=== PATIENT | female | born 1995 | race Caucasian/White ===

== ENCOUNTER → 2018-11-10 | Outpatient (CLI) | payer SELFPAY ==
[2018-11-10 17:56] LABS: Chlamydia Trachomatis by PCR Negative (Negative); Neisserai gonorrhoeae by PCR Negative (Negative); Probe Check PASS; Sample Adequacy Control PASS; Specimen Processing Control PASS
[2018-11-16 11:35] LABS: HPV Reflexed? NOT INDICATED
== END | disposition home or self-care (01) ==
LOC: LABSPEC 14:23
PROVIDERS: Visit Provider Obstetrics & Gynecology
DX: Z12.4 Encounter for screening for malignant neoplasm of cervix (principal); Z11.3 Encounter for screening for infections with a predominantly sexual mode of transmission
CPT/HCPCS: 87491; 87591; 88175; G0145

== ENCOUNTER → 2018-12-06 15:38 | Outpatient (CLI) | payer SELFPAY ==
[2018-12-06 17:49] LABS: Absolute Lymphocyte Count 1.93 X10^3/ul (0.83-4.51); Absolute Neutrophil Count 5.9 X10^3/uL (2.0-7.7); Basophil# 0.02 X10^3/uL; Basophil% 0.2 % (0-1); Eosinophil# 0.06 X10^3/uL; Eosinophils% 0.7 % (0-5); Hematocrit 36.8 % (37-47); Hemoglobin 13.1 g/dl (12.0-15.0); Lymphocyte # 1.93 X10^3/ul (4.0); Lymphocyte % 22.9 % (19-41); Mean Corp Hgb Conc 35.6 g/gl (32-36); Mean Corpuscular Hgb 30.5 pg (27.0-32.0); Mean Corpuscular Volume 85.8 fL (81-99); Mean Platelet Vol. 10.2 fl (6.2-12.0); Monocyte# 0.51 X10^3/uL; Platelet Count 300 K/mm3 (150-450); RBC Distribution Width CV 13.4 % (11.6-14.6); RBC Distribution Width SD 41.4 fl (35.1-43.9); Red Blood Count 4.29 M/mm3 (4.2-5.4); White Blood Count 8.4 K/mm3 (4.4-11.0)
[2018-12-06 17:50] LABS: POSITIVE COUNT NO; POSITIVE DIFFERENTIAL NO; POSITIVE MORPHOLOGY NO
[2018-12-06 18:00] LABS: Color, Urine Yellow (Yellow); Glucose, Dipstick Normal (Normal); Ketone-Dipstick Negative (Negative); Leukocyte Esterase-Dipstick 500 /ul (Negative); Nitrite-Dipstick Negative (Negative); Occult Blood-Urine Negative /ul (Negative); Protein-Dipstick Negative (Negative); Specific Gravity, Urine 1.015 (1.002-1.030); Urine Bilirubin Dipstick Negative (Negative); Urine Clarity Cloudy (Clear); Urine Urobilinogen Normal (Normal)
[2018-12-06 18:24] LABS: Amphetamine Urine VISTA NEGATIVE (<1000 ng/mL); Barbiturate Urine VISTA NEGATIVE (< 200 ng/mL); Benzodiazepine Urine VISTA NEGATIVE (< 200 ng/mL); Cocaine Urine VISTA NEGATIVE (< 300 ng/mL); Ecstacy Urine VISTA NEGATIVE (< 500 ng/mL); Methadone Urine VISTA NEGATIVE (< 300 ng/mL); PCP Urine VISTA NEGATIVE (< 25 ng/mL); THC Urine VISTA NEGATIVE (< 50 ng/mL); Vista UDS pH Range 7
[2018-12-07 10:19] LABS: HIV - WCH Non-Reactive (Nonreactive); Hepatitis B Surface Antigen Non-Reactive (Nonreactive); Hepatitis C Antibody Non-Reactive (Nonreactive); Rubella IgG 35.8 IU/mL
[2018-12-09 05:48] LABS: Prenatal RPR NONREACTIVE (NONREACTIVE)
== END ==
PROVIDERS: Visit Provider Obstetrics & Gynecology
DX: Z34.81 Encounter for supervision of other normal pregnancy, first trimester (principal)
CPT/HCPCS: 36415; 80307; 81002; 84443; 85025; 86703; 86762; 86803; 87340

== ENCOUNTER → 2019-03-23 11:24 | Outpatient (CLI) | payer SELFPAY ==
[2019-03-23 14:10] LABS: Hematocrit 33.5 % (37-47); Hemoglobin 11.4 g/dL (12.0-15.0); Mean Corpuscular Hgb 30.9 pg (27.0-32.0); Mean Corpuscular Volume 90.8 fL (81-99); Mean Platelet Vol. 10.5 fl (6.2-12.0); Platelet Count 274 K/mm3 (150-450); RBC Distribution Width CV 12.6 % (11.6-14.6); RBC Distribution Width SD 41.6 fl (35.1-43.9); Red Blood Count 3.69 M/mm3 (4.2-5.4); White Blood Count 9.5 K/mm3 (4.4-11.0)
[2019-03-23 14:14] LABS: Glucose Challenge Gest 1H 50g 91 mg/dL (70-140)
== END ==
PROVIDERS: Visit Provider Obstetrics & Gynecology
DX: Z34.82 Encounter for supervision of other normal pregnancy, second trimester (principal)
CPT/HCPCS: 82950; 85027

== ENCOUNTER → 2019-05-22 13:53 | Outpatient (CLI) | payer SELFPAY | PROVIDERS: Visit Provider Obstetrics & Gynecology | DX: Z36.85 Encounter for antenatal screening for Streptococcus B (principal) | CPT/HCPCS: 87081 ==

== ENCOUNTER 2019-06-17 03:51 | Inpatient (IN) | payer SELFPAY ==
[2019-06-17 03:37] VITALS: BMI 29.9
[2019-06-17 03:48] LABS: ROM Internal Control Test YES-OK TO RESULT pt. (Internal QC)
[2019-06-17 03:49] LABS: ROM Patient Test POSITIVE (Negative)
[2019-06-17] MEDS: Lactated Ringers 500 ML 999 ML IV (04:20)
[2019-06-17 04:45] LABS: Absolute Lymphocyte Count 2.36 X10^3/uL (0.83-4.51); Absolute Neutrophil Count 9.8 X10^3/uL (2.0-7.7); Basophil# 0.06 X10^3/uL; Basophil% 0.5 % (0-1); Eosinophil# 0.09 X10^3/uL; Eosinophils% 0.7 % (0-5); Hematocrit 36.9 % (37-47); Hemoglobin 12.2 g/dL (12.0-15.0); Lymphocyte # 2.36 X10^3/ul (4.0); Lymphocyte % 17.8 % (19-41); Mean Corp Hgb Conc 33.1 g/dL (32-36); Mean Corpuscular Hgb 29.5 pg (27.0-32.0); Mean Corpuscular Volume 89.1 fL (81-99); Mean Platelet Vol. 11.3 fl (6.2-12.0); Monocyte# 0.87 X10^3/uL; Monocyte% 6.6 % (0-10); NRBC Flagged by Analyzer 0 % (0-5); Neutrophil % 73.8 % (47-70); Platelet Count 277 K/mm3 (150-450); RBC Distribution Width CV 13.2 % (11.6-14.6); RBC Distribution Width SD 42.9 fl (35.1-43.9); Red Blood Count 4.14 M/mm3 (4.2-5.4); White Blood Count 13.3 K/mm3 (4.4-11.0)
[2019-06-17] MEDS: Lactated Ringers 1,000 ML 200 ML IV ×2 (04:51→09:21)
[2019-06-17] MEDS: fentaNYL-bupivacaine (epidural) 100 ML BAG EPIDURAL ×2 (05:28→10:01)
[2019-06-17 05:49] LABS: Partial Thromboplast Time 25.8 Seconds (24.1-36.2)
[2019-06-17 05:56] LABS: AST(SGOT) 23 U/L (15-37); Alanine Aminotransfer ALT/SGPT 15 U/L (13-56); Creatinine, Serum 0.88 mg/dL (0.55-1.02); EST Glomerular Filtration Rate 83 mL/min (>60); Est Glom Filt Rate - Afr Amer 101 mL/min (>60); Estimated Creatinine Clearance 84.39 ml/min; Uric Acid 5.8 mg/dL (2.6-6.0)
[2019-06-17 06:15] LABS: Protein, Urine (Random) 19.8 mg/dL (<11.9); Protein:Creat Ratio 493 mg/g CRE (0-200)
[2019-06-17] MEDS: Oxytocin 30 units/NS 500 ml 30 UNITS/500 ML IV.SOLN IV (10:06)
--- NOTE | 2019-06-17 13:38 | HP.PCM_ITS ---
History and Physical Date of Admission: 06/17/19 ACOG ANTEPARTUM RECORD - HISTORY AND PHYSICAL (06/17/2019) Name: CORTNEY HERMOSILLO OB Physician: MICA 's Physician: Dr Eden in [place] ...................................................................... : 09/02/1994 Age: 24 Address: [address] [place] [address] Phone: (h) [phone] ([phone] Insurance Carrier: Emergency Contact: KEYSHA BAY [phone] ...................................................................... Cortney is a 24yo at 40w1d gestation by L=12d4w who states she began tawana every 15 minutes about 1900 last evening; contractions increased in intensity and frequency as the evening progressed and she decided to come in to L&D; at 0255 she experienced spontaneous SROM for clear fluid; she received an epidural and continued to labor spontaneously; at 0845 contractions were occurring every 4 minutes; IUPC was ordered and moderate meconium was noted by RN upon placement; pediatrics was requested to be present for delivery; Pitocin was started after evaluation of FHR and contraction pattern post placement of IUPC: patient continued to labor comfortably with epidural; at 1330 she was C/C/+1 and began pushing with RN; prenatally, patient had expressed preference for MD at delivery, but when questioned by RN, she agreed to CNM delivery; on further discussion with CNM earlier this morning, with reassurance that she was welcome to request the provider of her choice, she continued to state that she was comfortable with CNM delivery. Final CARMELO: 06/16/19 By Ultrasound: 12 weeks 4 days PARITY: (G-Total Pregnancies P-Fullterm,Premature,Induced AB,Spont AB, Ectopics, Multiple,Living) CARMELO CONFIRMATION: By LMP: 09/09/18 Initial Exam: 06/16/19 By First Ultrasound Exam: 06/16/19 Final CARMELO: 06/16/19 OB PROBLEM LIST: Declines CF. REQUESTS AFP- Declines MSAFP 01/03/19 WANTS for care and delivery. ALLERGIES: No Known Drug Allergies MEDICATIONS: One Daily 28 mg iron-800 mcg oral pack daily SOCIAL HISTORY: Smoking - Never Alcohol Use - RARELY not while Diet - balanced Diet, caffeine < 2 drinks per day and Water intake tries for 5 20 oz daily Lifestyle - Exercise - minimal and Walks 15 min x2week. 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 Place of - [place] Hours Worked - 35-40 Spouse-Sig Other Name - Keysha Spouse-Sig Other Occupation - REMOTELY PILOTED VEHICLE CONTROLLER of [email or web address] Spouse-Sig Other Phone No - [phone] PRIOR DELIVERY HISTORY DEL DATE GEST LAB WT LB WT OZ TYPE ANES LABOR TX ANTEPARTUM FLOW CHART VISIT GE RTC FU F F AR U U DATE WK MD WKS HT PN HR M SS BP ED WT AR GL D EF ST __ ____ ___ __ __ ___ __ __ __ ___ __ __ __ ___ __ 08 Jun JMW 1 38 V + + 118/80 sl 172 tr - 3 75 -2 Jun JMW 1 37 V + + 130/86 0 171 tr - S May JMW 1 36 + + 122/84 0 171 - May ELB 1 33 V + + 130/82 0 171 tr - 2 50 -1 May ELB 2 34 - + + 120/78 0 166 tr - Apr ELB 2 30 + + 110/72 0 162 - - Apr 04 ELB 2 29 - + + 108/80 0 157 - - Apr 02 ELB 2 28 - + + 110/72 0 157 tr - 19 Feb 27 ELB 4 24 - + + 110/80 0 153 - - Jan 24 SHM 1 20 + + 112/70 0 150 - - Dec 20 ELB 4 - - + ? 110/72 0 144 tr - Dec 16 ELB 4 - - U+ O 96/70 0 142 - - ANTEPARTUM NOTE(S): Jun 14 2019: Ctxs-occas, Good FM Jun 08 2019: Ctxs-occas, Good FM Jun 01 2019: Good FM May 22 2019: See note May 08 2019: encouaged Tdap and Flu, PTL reviewed Apr 21 2019: feeling well. Apr 06 2019: feeling well. Mar 23 2019: glucola drawn today Feb 23 2019: feeling well. Glucola given. Feb 01 2019: doing well, comp u/s today Jan 03 2019: declines MSAFP testing Dec 06 2018: feeling well. COMPREHENSIVE ANTEPARTUM NOTE(S): May 29 2019: H taken to OB. tkg Dec 19 2019: GBS negative. EB May 22 2019: Cortney is here for visit. She requests MD only. She is going to have GBS today. Declines LARC and wants to discuss 3 year IUD. Declines Influenza, Tdap. Reviewed FM, SROM, and labor. LMT May 22 2019: S/sx of labor reviewed. GBS today. RTO 1 wk for PNV. EB Apr 21 2019: Feeling well; reports active FM; denies UCs, VB, LOF; discussed warning signs, s/s PTL; pt will speak w/spouse and let us know at next visit if she has a preference as to MD or CNM care; RTO 2 weeks for PNV - KVW Mar 24 2019: Glucola 91. Hgb 11.4 g/dl. EB Mar 23 2019: Cortney is here for visit. She is doing well, no complaints or concerns. Enouraged Influenza and Tdap. Mar 23 2019: Labs drawn from left ac with 23g butterfly patient tolerated well site without comrpromise. jlb Dec 07 2018: O positive Tox neg Hgb 13.1 g/dl. EB Dec 06 2018: Pap WNL. Here for NOB buck, NOB nurse, PNV. EB Dec 06 2018: Cortney is here for NOB nurse visit with CARMELO 06-16-19 planning a vag del at [facility], uncertain of epidural or feeding method. She plans to use Dr Eden in [place] for post disch ped care. Cortney is a G 1 P 0 who works FT at [employer] in [facility] . Her . 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 The was a surprise but they are happy. Cortney has NKA to drugs, food. latex or the environment. She's a lifetime non smoker, denies street drug use and rarely drinks alcohol but not in pg. Her diet is well balanced w no caffeine and many 20 oz bottles of water daily. She walks sometimes and walking 20 min daily suggested. She has a gym near her home and could walk there in inclement weather. Genetics Screening form completed noting a niece with Down's Syndrome. She declines CF but requests AFP testing. Warning signs in pg discussed as well as reaching the office after hours, OTC meds ok to take, importance of protein in her diet, wearing her seatbelt very low on her abdomen and lifting restriction of 20-25# with understanding voiced. She has a copy of What to Expect. US done today and routine labs drawn. Office Childbirth and Classes discussed and encouraged. Benefits of nursing a baby during winter cold/flu season reviewed. Info on classes and foods to be careful with/avoid given. Enc to call w any concerns. Visit took approx 50 min Juan HANSEN. Nov 11 2018: GC and chlamydia NEG EB Nov 10 2018: Cortney is being seen for missed menses appt. First . UPT in office positive. LMP 4-5-19. Pt is about 6 weeks and 6 days. CARMELO 1-10-20. Pt is taking and minimal nausea. Pap and cultures done today. Medications and allergies are up to date. information gone over. AM REVIEW OF SYSTEMS: GENERAL - Denies fever, or chills SKIN - Denies rash, new skin lesions, or change in moles EYES - Denies blurred vision, or change in visual acuity EARS - Denies ear pain, or difficulty hearing NOSE - Denies nasal congestion, discharge, or bleeding MOUTH - Denies sore throat, or difficulty swallowing NECK - Denies pain or swelling RESPIRATORY - Denies shortness of breath, cough, wheezing CARDIOVASCULAR - Denies palpitations, chest pain, orthopnea, PND, peripheral edema, syncope or claudication GASTROINTESTINAL - Denies nausea, vomiting, diarrhea, constipation, Denies abdominal pain, melena and or bright red blood GENITOURINARY - Denies dysuria, frequency of urination, urgency, or hesitancy MUSCULOSKELETAL - Denies joint or muscle pain, or back pain NEUROLOGICAL - Denies localized numbness, weakness, or tingling PSYCHIATRIC - Denies depression, anxiety, substance abuse or suicide attempts ENDOCRINE - Denies heat or cold intolerance, weight loss or gain, increasing thirst HEMATO-IMMUNOLOGIC - Denies easy bruising, bleeding, oral ulcerations or recurrent infections GENETICS SCREENING: Age 35+ years: No Thalassemia: No Neural Tube Defect: No Down Syndrome: Yes CONNER-SACHS: No Sickle Cell Disease: No Hemophilia: No Musc. Dystrophy: No Cystic Fibrosis: No-declines screening [place] Chorea: No Mental Retardation: No Fragile X: No Other genetic: No Other defects: No SABs/still births: No Drugs since LMP: No INFECTION HISTORY: High risk AIDS: No High risk Hepatitis: No Exposed to TB: No Exposed to Herpes: No Rash/viral illness since LMP: No History of STD: No MENSTRUAL HISTORY: *Menses Amount/Duration: 5-6 DAYSMenses Regularity: RegularFrequency: monthly* PAST SUMMARY: PARITY: 1. Total Pregnancies............ 1 2. Full Term Pregnancies........ 0 3. Premature.................... 0 4. Abortions - Induced.......... 0 5. Abortions - Spontaneous...... 0 6. Ectopics..................... 0 7. Multiple Births.............. 0 8. Living Children.............. 0 Labs for : CORTNEY HERMOSILLO since 09/19/2018 ORDER DATEIN DESCRIPTION VALUE UNITS RANGE A+ COMMENT (ROM) RUPTURE OF MEMBRANES 06/17/19 NOTE Original Ordering Provider: YOLANDA Parrish ROM POSITIVE Negative H Amniotic fluid present indicates rupture of Membranes. RESULTS CALLED TO LISA MARTINEZ 06/17/19 0348 Kapil Dillard. REPORT READ BACK BY SAME . CULTURE, GROUP B STREPTOCOCCUS 05/22/19 NOTE Original Ordering Provider: Dionna Rangel Comments: VAGINAL/RECTAL IVANIA Culture Group B Beta Streptococcus is not isolated. Reviewed by DIONNA GLUCOSE CHALLENGE GEST 1H 50G 03/23/19 NOTE Original Ordering Provider: Dionna Rangel GLU GEST 50G 1H 91 mg/dL 70-140 Reviewed by DIONNA CBC-COMPLETE BLOOD CNT NO DIFF 03/23/19 NOTE Original Ordering Provider: Dionna Rangel WBC 9.5 K/mm3 4.4-11.0 RBC 3.69 M/mm3 4.2-5.4 L HGB 11.4 g/dL 12.0-15.0 L HCT 33.5 % 37-47 L MCV 90.8 fL 81-99 MCH 30.9 pg 27.0-32.0 MCHC 34.0 g/dL 32-36 RDW CV 12.6 % 11.6-14.6 RDW SD 41.6 fl 35.1-43.9 PLT 274 K/mm3 150-450 MPV 10.5 fl 6.2-12.0 Reviewed by DIONNA RPR 12/06/18 NOTE Original Ordering Provider: Dionna Rangel RPR NONREACTIVE NONREACTIVE Reviewed by DIONNA HEPATITIS C ANTIBODY 12/06/18 NOTE Original Ordering Provider: Dionna Rangel HEPATITIS C AB Non-Reactive Nonreactive Non Reactive: < 0.8 Equivocal: >/= 0.8 to < 1.0 Reactive: >/= 1.0 The CDC recommends that a reactive/equivocal HCV antibody result be followed up by the HCV Nucleic Acid Amplification test (049216) Reviewed by DIONNA HEPATITIS B SURFACE ANTIGEN 12/06/18 NOTE Original Ordering Provider: Dionna Rangel HEPB SURFACE AG Non-Reactive Nonreactive Reviewed by DIONNA HIV - [facility] 12/06/18 NOTE Original Ordering Provider: Dionna Rangel HIV - [facility] Non-Reactive Nonreactive Reviewed by DIONNA RUBELLA IGG 12/06/18 NOTE Original Ordering Provider: Dionna Rangel RUBELLA IGG 35.8 IU/mL Antibody results Interpretation of Immune Status < 5 IU/ml Presumed Non-immune 5 - < 10 IU/ml Equivocal > or = 10 IU/ml Presumed Immune Reviewed by DIONNA T AND S-NO CHARGE W/PNP 12/06/18 Reason for Type AND Screen/Red Cells: Surgery? [facility]~[address] [place], [address]~ BLOOD TYPE GEL O POSITIVE N AB SCREEN GEL NEGATIVE N Reviewed by DIONNA URINE DRUG SCREEN (VISTA) 12/06/18 NOTE Original Ordering Provider: Dionna Rangel TO BE CONFIRMED CONFIRMATORY TESTING FOR ALL POSITIVE URINE DRUG SCREEN RESULTS WILL ONLY BE SENT OUT UPON PHYSICIAN ORDER. VISTA Urine Drug Screen methods provide only preliminary analytical test results. A more specific alternate chemical method must be used in order to obtain a confirmed analytical result. Gas chromatography/mass spectrometery (GC/MS) is the preferred confirmatory method. Clinical consideration and professional judgement should be applied to any drug of abuse test result, particularly when preliminary positive results are used. URINE TCA TESTING MUST BE ORDERED SEPARATELY. USE TEST MNEMONIC: [facility] UDS PH 7 AMPHETAMINES NEGATIVE <1000 ng/mL BARBITIURATES NEGATIVE < 200 ng/mL BENZODIAZIPINE NEGATIVE < 200 ng/mL COCAINE NEGATIVE < 300 ng/mL ECSTACY NEGATIVE < 500 ng/mL METHADONE NEGATIVE < 300 ng/mL OPIATES NEGATIVE < 300 ng/mL PCP NEGATIVE < 25 ng/mL THC NEGATIVE < 50 ng/mL Reviewed by DIONNA URINALYSIS, ROUTINE (DIPSTICK) 12/06/18 NOTE Original Ordering Provider: Dionna Rangel COLOR Yellow Yellow CLARITY Cloudy Clear GLUCOSE, UR Normal mg/dl Normal BILIRUBIN URINE Negative mg/dL Negative KETONE UR Negative mg/dl Negative SP.GR. DIPSTX 1.015 1.002-1.030 PH UR 7.0 5.0 - 8.0 PROT DIPSTX Negative mg/dl Negative UROBILI Normal mg/dl Normal NITRITE UR Negative Negative OCCULT BLOOD-UR Negative /ul Negative LEUK ESTERASE 500 /ul Negative H Reviewed by DIONNA THYROID STIM HORMONE (TSH) 12/06/18 NOTE Original Ordering Provider: Dionna Rangel TSH 1.00 uIU/mL 0.358-3.74 Reviewed by DIONNA CBC W/DIFF, AUTOMATED 12/06/18 NOTE Original Ordering Provider: Dionna Rangel WBC 8.4 K/mm3 4.4-11.0 RBC 4.29 M/mm3 4.2-5.4 HGB 13.1 g/dl 12.0-15.0 HCT 36.8 % 37-47 L MCV 85.8 fL 81-99 MCH 30.5 pg 27.0-32.0 MCHC 35.6 g/gl 32-36 RDW CV 13.4 % 11.6-14.6 RDW SD 41.4 fl 35.1-43.9 PLT 300 K/mm3 150-450 MPV 10.2 fl 6.2-12.0 NEUT% 70.0 % 47-70 LY% 22.9 % 19-41 MONO% 6.0 % 0-10 EO% 0.7 % 0-5 BASO% 0.2 % 0-1 IM GRAN % 0.200 % 0.0-0.9 IG% - Immature Granulocytes (promyelocytes, myelocytes and metamyelocytes) > 1% indicates that a LEFT SHIFT is Present. ABSOLUTE NEUT 5.9 X10 3/uL 2.0-7.7 ABSOLUTE LYMPH 1.93 X10 3/ul 0.83-4.51 Reviewed by DIONNA Reviewed by DIONNA PAP I-G W/RFX HRHPV 11/10/18 NOTE Original Ordering Provider: Dionna Rangel DIAGN . NEGATIVE FOR INTRAEPITHELIAL LESION OR MALIGNANCY. ADEQ . Satisfactory for evaluation. Endocervical and/or squamous metaplastic cells (endocervical component) are present. PERFORM . Corazon Mathis, Refrigeration Manager (ASCP) TEST METHOD . This liquid based ThinPrep(R) pap test was screened with the use of an image guided system. COMM . . PAPSMR . The Pap smear is a screening test designed to aid in the detection of premalignant and malignant conditions of the uterine cervix. It is not a diagnostic procedure and should not be used as the sole means of detecting cervical cancer. Both false-positive and false-negative reports do occur. HPV RFLX . The HPV DNA reflex criteria were not met with this specimen result therefore, no HPV testing was performed. Performed at: [address] [id number] [employer] Machine Operator: Leora Johnson MD, Phone: [phone] Reviewed by DIONNA CT/[facility] BY PCR 11/10/18 NOTE Original Ordering Provider: Dionna Rangel [facility] PCR Negative Negative NG BY PCRw Negative Negative Reviewed by DIONNA PROVIDER SIGNATURE ( REQUIRED) PHYSICAL EXAMINATION General Appearence: 24 yo female in no acute distress Vital Signs: AF, VSS Heart: RRR without rubs or gallops Lungs: CTA x 2 Breasts: deferred Abdomen: gravid Pelvis: Cervix: 10/10/+1 Presentation: cephalic Fetus/Uterus Size: AGA Movement: present FHTs: 145 baseline, moderate variability, +accels, variable decelerations with <20s return to baseline Q 2-3 Pitocin: 4mu Impression:24yo at 40w1d gestation by L=12d4w US 2nd stage labor Cat 2 FHTs Plan: Continue pushing efforts Pediatrics to be present for delivery Anticipate vaginal delivery
[2019-06-17] MEDS: Oxytocin 30 units/NS 500 ml 30 UNITS/500 ML IV.SOLN 334 UNITS IV (14:01)
[2019-06-17] MEDS: Ibuprofen 600 MG Tablet PO ×2 (15:38→22:07)
--- NOTE | 2019-06-17 16:14 | PCM.OPRPT ---
Vaginal Delivery Maternal Presentation: Active Labor Active labor Amniotic Membrane Rupture Type: Spontaneous Rupture of Membrane time: 025 Amniotic Fluid Description: Clear Final CARMELO: 06/16/19 Final CARMELO Source: US <20 weeks - Consistent w/LMP Gestational age: 40 Weeks and 1 Days [place] doctor who attended delivery (if requested by OB): Daljit Velásquez - Moderate meconium noted at 0859 Date of Procedure: 06/17/19 Pre-Operative Diagnosis: Active labor Post-Operative Diagnosis: Surgery/ Procedure Performed: Spontaneous Vaginal Delivery Type of Anesthesia: Epidural Description of Procedure: CTSP when she was 10100/+3; pushed well and delivered a viable male OA to CANDIS; shoulders followed easily; infant placed on maternal abdomen, cord clamped x2 by CNM and cut by FOB under CNM supervision; intake manager was at bedside for evaluation; infant remained with mother, was bulb-suctioned by nursery nurse, dried and stimulated, APGARs 8/9; placenta delivered spontaneously, Busch mechanism, intact, 3-vessel cord, marginal insertion; EBL 300 Lap sponge, raytec and instrument count correct w/RN x 2 Presentation: Vertex, CANDIS Placental Delivery Description: Spontaneous Placenta Disposition: [facility] Cord Vessel Description: 3 Vessels Cord Entanglement: None Estimated Blood Loss: 300 A gender: Male (1 minute): 8 (5 minute): 9 Episiotomy Description: None Laceration: Right Mediolateral, Perineal Extension/lac, 1st degree Medications given after delivery: IV Pitocin
--- NOTE | 2019-06-17 16:30 | DCINST_ITS ---
Discharge Diet: No Restrictions Discharge Activity: Return to Normal Activity, May Drive, May Shower, May Take a Tub Bath Return to work on:: 06/23/19 - After checkup May resume sexual activity in: 6-8 weeks - After checkup Weight Bearing Status: Weight bearing as tolerated Lifting Restrictions: Nothing heavier than the baby for two weeks Additional Activity Instructions:: Minimize cooking, cleaning, shopping and long car drives/rides for two weeks; try to get at least 8 hours sleep in 24 hours for the first two weeks - sleep when the baby sleeps Call your doctor if your incision/area has: Continuous Slow Oozing, Sudden Increased Bleeding, Increased Pain/ Swelling, Increased Redness, Foul Smelling Discharge Call your doctor if you observe: Fever of 101 or Higher, Coldness, Increased Pain, Change in Color, Inability to urinate, Inability to have a bowel movement, Using more than one pad per hour, Shortness of breath, Dizziness, Fainting spells, Swelling in the ankles, Chest pain Additional Instructions: If you experience any of the following, contact your healthcare provider. * Bleeding that soaks a pad every hour for 2 hours * Fever 100.4 or higher * Unrelieved incision or abdominal pain * Swelling, redness, discharge or bleeding from your incision or episiotomy site * Your incision begins to separate * Problems urinating (including inability to urinate or burning while urinating). * Visual changes * Severe headache * Flu-like symptoms * Pain or redness in one of both of your breasts * Pain, warmth, tenderness or swelling in your legs, especially the calf area * Frequent nausea and vomiting * Symptoms of depression or anxiety If you experience any of the following, call 911 or go to the nearest Emergency Room. * Chest pain * Problems breathing * Seizure activity * Partial or complete paralysis of a body part, slurred speech, weakness or drooping of the face, or a sudden inability to walk or hold your balance Allergies/Adverse Reactions: Allergies No Known Allergies Allergy (Verified 06/17/19 03:38) Medications to take at Discharge Vits [Prenatabs FA] 1 tab PO DAILY 06/17/19 Please Follow Up With: Monica Parrish CNM When: 6 weeks for checkup Primary Care Physician: Care Physician,No Primary [Primary Care Provider] - Test Results: Test results from this visit will be discussed in further detail at your follow- up appointment, if applicable.
[2019-06-17 19:40] VITALS: BP 122/81; PULSE 72; RESP 16; TEMP 36.6
--- NOTE | 2019-06-17 22:34 | NURSING ---
verbal confirmation from off going JADE nath of patient having voided twice, confirmation from patient as well, no hat in bathroom, decision to remove IV at request of pt. and report of two voids
[2019-06-17] MEDS: Acetaminophen 500 MG Tablet 1000 MG PO (23:51)
[2019-06-18] VITALS (8 sets, daily range): BP systolic 124–138; BP diastolic 80–103; PULSE 70–85; RESP 14–18; TEMP 36.4–37.1
[2019-06-18 06:15] LABS: Hematocrit 32.4 % (37-47); Hemoglobin 10.7 g/dL (12.0-15.0); Mean Corpuscular Hgb 29.3 pg (27.0-32.0); Mean Corpuscular Volume 88.8 fL (81-99); Mean Platelet Vol. 10.8 fl (6.2-12.0); Platelet Count 222 K/mm3 (150-450); RBC Distribution Width CV 13.2 % (11.6-14.6); RBC Distribution Width SD 42.5 fl (35.1-43.9); Red Blood Count 3.65 M/mm3 (4.2-5.4); White Blood Count 13.6 K/mm3 (4.4-11.0)
[2019-06-18] MEDS: Ibuprofen 600 MG Tablet PO ×3 (06:42→22:39)
--- NOTE | 2019-06-18 08:34 | PCM.PN.OB ---
Subjective: Pain well controlled, passing flatus, tolerating diet; nursing well; spouse bedside and supportive Objective: AVSS Breasts soft, nipples atraumatic Fundus firm, midline, u/2, lochia small Perineal repair well approximated, mild edema, no drainage, erythema or ecchymosis noted - Physical Exam Vitals/I&O's: Vital Signs Temp Pulse Resp BP 97.8 F 82 18 136/89 H 06/18/19 03:35 06/18/19 03:35 06/18/19 03:35 06/18/19 06:36 Oxygen Delivery Method Room Air Weight: 174 lb 9.698 oz Body Mass Index (BMI) 29.9 Intake and Output for Last 24 Hours 06/16/19 06/17/19 06/18/19 23:59 23:59 23:59 Intake Total 3579.33 / 3579.33 Output Total 1999 Balance 1579.33 / 1579.33 General: Alert, Oriented x3, Cooperative, No apparent distress HEENT: PERRLA, EOMI Oral: Moist Mucosa Neck: Supple Lungs: Clear to auscultation, Normal air movement Cardiovascular: Regular rate, Regular Rhythm Abdomen: Bowel Sounds Present, Soft, Non Tender, Non-Distended, Passing Flatus Extremities: No cyanosis, No edema, Capillary Refill Less than 3 Seconds, No Calf Tenderness Skin: No rashes Musculoskeletal: No Tenderness to Palpation of Joints or Extremities Neurological: Cranial nerves II-XII grossly intact, Deep Tendon Reflexes 2+/4 and Symmetrical, Neuro grossly intact Psych/Mental Status: Normal Affect, Appropriate, Alert and oriented to time, place, person, mood and affect Laboratory Results 06/18/19 06:05: WBC 13.6 H, RBC 3.65 L, Hgb 10.7 L, Hct 32.4 L, MCV 88.8, MCH 29.3, MCHC 33.0, RDW Std Deviation 42.5, RDW Coeff of Melania 13.2, Plt Count 222, MPV 10.8 Current Medications Acetaminophen (Tylenol) 1,000 mg PO Q8H PRN PRN PRN Reason: Pain Score 1-3/10 Last Admin: 06/17/19 23:51 Dose: 1,000 mg Documented by: Bisacodyl (Dulcolax) 10 mg RECTAL UD PRN PRN Reason: If no BM Dibucaine (Dibucaine) 1 applic TOPICAL TID PRN PRN; Protocol PRN Reason: Discomfort Hydrocortisone (Hytone) 1 applic TOPICAL TID PRN PRN; Protocol PRN Reason: Discomfort Ibuprofen (Motrin) 600 mg PO Q6H PRN PRN PRN Reason: Pain Score 1-3/10 Last Admin: 06/18/19 06:42 Dose: 600 mg Documented by: Methylergonovine Maleate (Methergine) 0.2 mg IM X1 PRN PRN Reason: Excess bleeding/uterine atony Ondansetron HCl (Zofran) 4 mg IV Q4H PRN PRN PRN Reason: Nausea Senna/Docusate Sodium (Senokot-S, Jeannette-Colace) 1 - 2 tablet PO DAILY PRN PRN PRN Reason: Constipation Simethicone (Mylicon) 80 mg PO PCHS PRN PRN Reason: Indigestion/Stomach pain Sodium Chloride () 5 - 15 ml IV UD PRN PRN Reason: SALINE FLUSH Medical Necessity - Tobacco Use Smoking Status: Never smoker Assessment/Plan Assessment: 24yo G1 now P0001 delivered via at 40w1d gestation by L=12d4w US day #1, normal involution, normal course Plan: Discharge teaching started Continue POC Discharge home tomorrow
[2019-06-19 02:05] VITALS: BP 141/90; PULSE 80; RESP 18; TEMP 36.8
[2019-06-19 02:55] VITALS: BP 124/83
--- NOTE | 2019-06-19 04:35 | PCM.PN.OB ---
Subjective: Pain well controlled, tolerating diet, passing flatus; well; planning IUD for contraception; spouse bedside and supportive Objective: AVSS Breasts soft, nipples mildly excoriated Fundus firm, midline, u/2, lochia small Perineal repair well approximated, resolving edema, no drainage, erythema or ecchymosis noted - Physical Exam Vitals/I&O's: Vital Signs Temp Pulse Resp BP 98.3 F 80 18 124/83 H 06/19/19 02:05 06/19/19 02:05 06/19/19 02:05 06/19/19 02:55 Oxygen Delivery Method Room Air Weight: 174 lb 9.698 oz Body Mass Index (BMI) 29.9 Intake and Output for Last 24 Hours 06/17/19 06/18/19 06/19/19 23:59 23:59 23:59 Intake Total 3579.33 / 3579.33 Output Total 1999 Balance 1579.33 / 1579.33 General: Alert, Oriented x3, Cooperative, No apparent distress HEENT: PERRLA, EOMI Oral: Moist Mucosa Neck: Supple Lungs: Clear to auscultation, Normal air movement Cardiovascular: Regular rate, Regular Rhythm Abdomen: Bowel Sounds Present, Soft, Non Tender, Non-Distended, Passing Flatus Extremities: No cyanosis, No edema, Capillary Refill Less than 3 Seconds, No Calf Tenderness Skin: No rashes Musculoskeletal: No Tenderness to Palpation of Joints or Extremities Neurological: Cranial nerves II-XII grossly intact, Deep Tendon Reflexes 2+/4 and Symmetrical, Neuro grossly intact Psych/Mental Status: Normal Affect, Appropriate, Alert and oriented to time, place, person, mood and affect Laboratory Results 06/18/19 06:05: WBC 13.6 H, RBC 3.65 L, Hgb 10.7 L, Hct 32.4 L, MCV 88.8, MCH 29.3, MCHC 33.0, RDW Std Deviation 42.5, RDW Coeff of Melania 13.2, Plt Count 222, MPV 10.8 Current Medications Acetaminophen (Tylenol) 1,000 mg PO Q8H PRN PRN PRN Reason: Pain Score 1-3/10 Last Admin: 06/17/19 23:51 Dose: 1,000 mg Documented by: Bisacodyl (Dulcolax) 10 mg RECTAL UD PRN PRN Reason: If no BM Dibucaine (Dibucaine) 1 applic TOPICAL TID PRN PRN; Protocol PRN Reason: Discomfort Hydrocortisone (Hytone) 1 applic TOPICAL TID PRN PRN; Protocol PRN Reason: Discomfort Ibuprofen (Motrin) 600 mg PO Q6H PRN PRN PRN Reason: Pain Score 1-3/10 Last Admin: 06/18/19 22:39 Dose: 600 mg Documented by: Methylergonovine Maleate (Methergine) 0.2 mg IM X1 PRN PRN Reason: Excess bleeding/uterine atony Ondansetron HCl (Zofran) 4 mg IV Q4H PRN PRN PRN Reason: Nausea Senna/Docusate Sodium (Senokot-S, Jeannette-Colace) 1 - 2 tablet PO DAILY PRN PRN PRN Reason: Constipation Simethicone (Mylicon) 80 mg PO PCHS PRN PRN Reason: Indigestion/Stomach pain Sodium Chloride () 5 - 15 ml IV UD PRN PRN Reason: SALINE FLUSH Medical Necessity - Tobacco Use Smoking Status: Never smoker Assessment/Plan Assessment: 24yo G1 now P0001 delivered via at 40w1d gestation by L=12d4w US day #2, normal involution, normal course Plan: Discharge teaching completed Discharge home today RTO 6 weeks for exam
[2019-06-19 08:10] VITALS: BP 137/101; PULSE 88; RESP 16; TEMP 36.8
[2019-06-19] MEDS: Acetaminophen 500 MG Tablet 1000 MG PO (08:19)
[2019-06-19 10:18] VITALS: BP 136/96
== END 2019-06-19 12:00 | disposition home health service (06) | DRG 807 ==
LOC: WPOUT 04:00 → WP 04:00
PROVIDERS: Admitting Provider Advanced Practice Midwife; Visit Provider Advanced Practice Midwife
DX: O80 Encounter for full-term uncomplicated delivery (principal); Z37.0 Single live birth; Z3A.40 40 weeks gestation of pregnancy; Z82.79 Family history of other congenital malformations, deformations and chromosomal abnormalities
CPT/HCPCS: 59025; 59050; 82565; 82570; 84112; 84156; 84450; 84460; 84550; 85025; 85027; 85610; 85730; 86850; 86900; 86901; 99218; J7120; G0378

== ENCOUNTER → 2019-11-16 | Outpatient (CLI) | payer SELFPAY ==
[2019-11-16 19:19] LABS: Chlamydia Trachomatis by PCR Negative (Negative); Neisserai gonorrhoeae by PCR Negative (Negative); Probe Check PASS; Sample Adequacy Control PASS; Specimen Processing Control PASS
== END | disposition home or self-care (01) ==
PROVIDERS: Referring Provider Obstetrics & Gynecology; Visit Provider Obstetrics & Gynecology
DX: Z11.3 Encounter for screening for infections with a predominantly sexual mode of transmission (principal)
CPT/HCPCS: 87491; 87591